=== PATIENT | female | born 1990 | race American Indian/Alaskan Native ===

== ENCOUNTER 2016-12-25 23:07 | Emergency (ER) | payer SELFPAY ==
[2016-12-25 23:49] VITALS: BP 117/76
[2016-12-26 00:25] LABS: Basophils % (Auto) 0.3 % (0.0-1.8); Eosinophils % (Auto) 0.3 % (0.0-4.3); Hematocrit 37.4 % (30.3-42.9); Hemoglobin 12.6 gm/dl (10.1-14.3); Mean Corpuscular HGB Conc 34 % (30-34); Mean Corpuscular Hemoglobin 29 pg (28-32); Mean Corpuscular Volume 86 fl (79-97); Platelet Count 261 K/mm3 (140-440); Red Blood Count 4.34 M/mm3 (3.65-5.03); Red Cell Distribution Width 14.1 % (13.2-15.2); White Blood Count 6.9 K/mm3 (4.5-11.0)
[2016-12-26 00:46] LABS: Anion Gap 19 mmol/L; BUN/Creatinine Ratio 16.66; Blood Urea Nitrogen 5 mg/dL (7-17); Calcium 9.1 mg/dL (8.4-10.2); Carbon Dioxide 22 mmol/L (22-30); Chloride 94.4 mmol/L (98-107); Glucose 105 mg/dL (65-100); Potassium 3.7 mmol/L (3.6-5.0); Sodium 132 mmol/L (137-145)
--- NOTE | 2016-12-28 14:51 | ED Elopement Review ---
ED Pt Elopement review - Results review Lab results: Laboratory Tests 12/25/16 12/25/16 23:55 23:55 WBC 6.9 RBC 4.34 Hgb 12.6 Hct 37.4 MCV 86 MCH 29 MCHC 34 RDW 14.1 Plt Count 261 Lymph % (Auto) 24.0 [place] % (Auto) 11.0 H Eos % (Auto) 0.3 Baso % (Auto) 0.3 Lymph # 1.7 Walton # 0.8 Eos # 0.0 Baso # 0.0 Seg Neutrophils % 64.4 Seg Neutrophils # 4.4 Sodium 132 L Potassium 3.7 Chloride 94.4 L Carbon Dioxide 22 Anion Gap 19 BUN 5 L Creatinine 0.3 L Estimated GFR > 60 BUN/Creatinine Ratio 16.66 Glucose 105 H Calcium 9.1 - Call Back decision Pt Call Back Decision: No action required
== END 2016-12-26 01:50 | disposition left against medical advice (07) ==
LOC: ED 23:07
DX: F41.9 Anxiety disorder, unspecified (principal); Z53.21 Procedure and treatment not carried out due to patient leaving prior to being seen by health care provider
CPT/HCPCS: 36415; 80048; 85025